=== PATIENT | female | born 1985 | race Caucasian/White ===

== ENCOUNTER 2016-07-20 12:24 | Outpatient (CLI) | payer MEDICAID ==
[~2016-07-20] VITALS: Ht 139.7 cm; Wt 78.0 kg
[~2016-07-20 12:24] MED LIST: PREN1TAB49
[2016-07-20 12:55] VITALS: Ht 139.7 cm; Wt 78.0 kg
[2016-07-20 12:56] VITALS: BP 117/68; PULSE 82; RESP 18
[2016-07-20] MEDS ORDERED: FERR325C PO (12:59)
[2016-07-20] MEDS ORDERED: CALC-516 PO (13:00)
--- NOTE | 2016-07-20 13:31 | RADRPT ---
PROCEDURE: OB ultrasound for biophysical profile CLINICAL INDICATION: Decreased movement. Biophysical profile. . TECHNIQUE: Multiple sonographic images of the pelvis were obtained. Transabdominal view of the gr avid uterus are available for review. The images were reviewed on a PACS workstation. COMPARISON: None FINDINGS: breathing movement = 2/2 tone = 2/2 motion = 2/2 NIR = 2/2 Single intrauterine gestation is identified in cephalic position. heart rate is 152 bpm. Plac enta is fundal without evidence for abruption or previa. NIR measures 10.5 cm, within normal limits . IMPRESSION: 1. Single live intrauterine gestation. 2. Biophysical profile = 8/8. 3. NIR = 10.5 cm. RPTAT: HH .Juan Jose Singh MD, Date Time Electronically viewed and signed by .Juan Jose Singh MD, on 07/20/2016 13:30 .R/
== END 2016-07-20 16:30 | disposition home or self-care (01) ==
LOC: OBT 12:24 → L-D 12:24 → OBT 16:30
PROVIDERS: ATTEND Obstetrics & Gynecology
DX: O36.8130 Decreased fetal movements, third trimester, not applicable or unspecified (principal); O40.3XX0 Polyhydramnios, third trimester, not applicable or unspecified; Z3A.00 Weeks of gestation of pregnancy not specified
CPT/HCPCS: 76818; Z7500; G0463

== ENCOUNTER 2016-07-21 03:13 | Inpatient (IN) | payer MEDICAID ==
[~2016-07-21] VITALS: Ht 144.8 cm; Wt 77.1 kg
[~2016-07-21 03:13] MED LIST changes: +CALC-516 PO; +FERR325C PO
[2016-07-21 03:41] VITALS: Ht 144.8 cm; Wt 77.1 kg
[2016-07-21 03:42] VITALS: BP 128/73; PULSE 90; RESP 18
[2016-07-21] MEDS ORDERED: IBUPROFEN 600 MG TAB PO PRN (04:00)
[2016-07-21] MEDS ORDERED: OXYTOCIN 30 UNITS/LR 500 ML IV SCH (04:00)
[2016-07-21] MEDS ORDERED: MISOPROSTOL 200 MCG TAB PR PRN ×2 (04:00→21:00)
[2016-07-21] MEDS ORDERED: CARBOPROST 250 MCG INJ IM PRN ×2 (04:00→21:00)
[2016-07-21] MEDS ORDERED: LACTATED RINGER'S 1,000 ML IV PRN (04:00)
[2016-07-21] MEDS ORDERED: METHYLERGONOVINE 0.2 MG INJ IM PRN ×2 (04:00→21:00)
[2016-07-21] MEDS ORDERED: BUTORPHANOL 2 MG INJ IV PRN (04:00)
[2016-07-21] MEDS ORDERED: OXYTOCIN 30 UNITS/LR 500 ML IV PRN ×3 (04:00→21:00)
[2016-07-21] MEDS ORDERED: LIDOCAINE 1% (MPF) 30 ML INJ INJ PRN (04:00)
[2016-07-21] MEDS: LACTATED RINGER'S 1,000 ML IV SCH ×2 (04:11→11:41)
--- NOTE | 2016-07-21 04:53 | TRIAGE ---
OB Triage Datetime Report Generated by CPN: 07/21/2016 04:52 Datetime: 07/21/2016 04:23 Labor Evaluation Frequency: 1.5-5 Monitor Mode: External Duration (sec)2399: 60-150 Quality: Mild Pattern: Normal: <= 5 Contractions in 10 Minutes Resting Tone [place]: Relaxed Heart Rate FHR Baseline Rate: 140 Monitor Mode: External US Variability: Moderate 6-25 bpm Accelerations: 15X15 Decelerations: None Category: Category I Datetime: 07/21/2016 04:00 Labor Evaluation Frequency: 2-4 Monitor Mode: External Duration (sec)2399: 70-140 Quality: Mild Pattern: Normal: <= 5 Contractions in 10 Minutes Resting Tone [place]: Relaxed Heart Rate FHR Baseline Rate: 145 Monitor Mode: External US Variability: Moderate 6-25 bpm Accelerations: 15X15 Decelerations: Variable Category: Category II Datetime: 07/21/2016 03:41 Vaginal Exam Dilatation (cms): 2.0 Effacement (%): 50 Station: -2 Exam By: SRINATH Bryan Datetime: 07/21/2016 03:40 Stage of : OB Triage Membrane Status: Ruptured Membranes Ruptured Date/Time: 07/21/2016 02:45 Membranes Rupture Method: Spontaneous Amniotic Fluid Color: Clear Amniotic Fluid Amount: Moderate Amniotic Fluid Odor: None Vaginal Bleeding: None Pool: Positive Nitrazine: Positive Datetime: 07/21/2016 03:34 Stage of : OB Triage Assessment Type: Triage Maternal Assessment Level of Consciousness: Fully Conscious DTR's/Clonus: DTRs 2+; No Clonus Headache: Denies Blurred Vision: No Respiratory Effort: Unlabored; Regular Rhythm; Equal Expansion Breath Sounds, Left: Clear and Equal Breath Sounds, Right: Clear and Equal Nausea/Vomiting: Denies RUQ Epigastric Pain: Denies Lower Extremities Edema: Bilateral Lower Extremities Degree: 1+ Upper Extremities Edema: None Degree: None Facial Edema: None Temperature Route: Oral Fall Risk Assessment History of Falling: (0) No Secondary Diagnosis: (0) No Ambulatory Aid: (0) Bedrest/Nurse Assist IV Therapy: (0) No Gait: (0) Normal/Bedrest/Immobile Mental Status: (0) Oriented to Own Ability Fall Score: 0 Fall Risk Score Definition: No Risk: No action required Pain Assessment Pain Scale: 2 Pain Presence: Intermittent Pain Type: Cramping Pain Location: Abdomen; Back Pain Relief Measures: Comfort Measures Datetime: 07/21/2016 03:32 Stage of : OB Triage Time of Arrival: 07/21/2016 03:08 EGA: 36.6 Arrived By: Ambulatory Arrived From: Home Chief Complaint: SROM @0245 Movement: Decreased Contractions: Irregular Time Contractions Began: 07/21/2016 02:45 Rupture of Membranes: Ruptured Vaginal Bleeding: None Vaginal Discharge: Present Abdominal Trauma: Not Applicable Patient Complaints: Contractions; Cramping; Back Pain Time Provider Notified: 07/21/2016 04:00 Provider Notified: Initial Plan: EFM, Nitrazine, SVE Monitor Mode: External Contraction Comments: [place] applied Heart Rate FHR Baseline Rate: 150 Monitor Mode: External US Comments: EFM applied Datetime: 07/20/2016 15:00 Labor Evaluation Frequency: OCCAS Monitor Mode: External Duration (sec)2399: 50-120 Quality: Mild Pattern: Normal: <= 5 Contractions in 10 Minutes Resting Tone [place]: Relaxed Heart Rate FHR Baseline Rate: 135 Monitor Mode: External US FHR Baseline Changes: No Baseline Change Variability: Moderate 6-25 bpm Accelerations: 15X15 Decelerations: None Category: Category I Datetime: 07/20/2016 14:00 Labor Evaluation Frequency: OCCAS Monitor Mode: External Duration (sec)2399: 50-150 Quality: Mild Pattern: Normal: <= 5 Contractions in 10 Minutes Resting Tone [place]: Relaxed Heart Rate FHR Baseline Rate: 140 Monitor Mode: External US Variability: Moderate 6-25 bpm Accelerations: 15X15 Decelerations: None Category: Category I Datetime: 07/20/2016 12:47 Assessment Type: Triage Maternal Assessment Level of Consciousness: Fully Conscious DTR's/Clonus: DTRs 2+; No Clonus Headache: Denies Blurred Vision: No Respiratory Effort: Unlabored Breath Sounds, Left: Clear and Equal Breath Sounds, Right: Clear and Equal Nausea/Vomiting: Denies RUQ Epigastric Pain: Denies Lower Extremities Edema: None Degree: None Upper Extremities Edema: None Degree: None Facial Edema: None Fall Risk Assessment History of Falling: (0) No Secondary Diagnosis: (0) No Ambulatory Aid: (0) Bedrest/Nurse Assist IV Therapy: (0) No Gait: (0) Normal/Bedrest/Immobile Mental Status: (0) Oriented to Own Ability Fall Score: 0 Fall Risk Score Definition: No Risk: No action required Datetime: 07/20/2016 12:45 Time of Arrival: 07/20/2016 12:14 EGA: 36.5 Arrived By: Ambulatory Arrived From: Dr. Moreno Chief Complaint: No FM in office, with FHR of 160-168, per provider. Pt came with orders Movement: Decreased Contractions: Denies/Absent Rupture of Membranes: Denies Vaginal Bleeding: None Vaginal Discharge: Denies Recent Sexual Intercouse: Denies Abdominal Trauma: Not Applicable Patient Complaints: Other Time Provider Notified: 07/20/2016 16:04 Provider Notified: DR HERNANDEZ Initial Plan: VS, EFM, BPP/NIR Datetime: 07/20/2016 12:42 Stage of : OB Triage Monitor Mode: External Datetime: 07/20/2016 12:41 Monitor Mode: External US Datetime: 07/20/2016 12:37 Stage of : OB Triage Datetime: 07/20/2016 12:26 Stage of : OB Triage
[2016-07-21 04:55] LABS: INR 0.94; PROTIME 12.6 Sec (12.2-14.2)
[2016-07-21 04:56] LABS: PARTIAL THROMBOPLASTIN TIME 27.4 Sec (25.0-35.0)
[2016-07-21 05:14] LABS: BASOPHILS % 0.3 % (0.0-2.0); EOSINOPHILS # 0.1 10^3/ul (0.0-0.5); EOSINOPHILS % 0.9 % (0.0-7.0); HEMATOCRIT 36.1 % (37.0-47.0); HEMOGLOBIN 12.1 g/dl (12.0-16.0); LYMPHOCYTES # 1.5 10^3/ul (0.8-2.9); LYMPHOCYTES % 21.9 % (15.0-51.0); MEAN CORPUSCULAR HEMOGLOBIN 28.3 pg (29.0-33.0); MEAN CORPUSCULAR HGB CONC 33.5 g/dl (32.0-37.0); MEAN CORPUSCULAR VOLUME 84.3 fl (82.0-101.0); MEAN PLATELET VOLUME 11.4 fl (7.4-10.4); MONOCYTE # 0.4 10^3/ul (0.3-0.9); MONOCYTES % 5.5 % (0.0-11.0); NEUTROPHIL # 4.9 10^3/ul (1.6-7.5); NEUTROPHILS % 70.8 % (39.0-77.0); PLATELET COUNT 182 10^3/UL (140-440); RED BLOOD COUNT 4.28 10^6/ul (4.20-5.40); RED CELL DISTRIBUTION WIDTH 13.9 % (11.5-14.5); WHITE BLOOD COUNT 6.9 10^3/ul (4.8-10.8)
--- NOTE | 2016-07-21 06:11 | HP ---
Date/Time of Note Date/Time of Note DATE: 07/21/16 TIME: 06:06 OB - History Hx of Present Free Text/Dictation 31 yo P1@ 36 + wks presents w PPROM No VB, good FM, some ctx Chief Complaint: PPROM Estimated Due Date: Aug 12, 2016 : 2 Para: 1 Care: Good Care Past Family/Social History * Past Medical, Surgical, Family and Obstetric Histories reviewed from chart. Blood Type: B+ Rubella: immune RPR/VDRL: Negative GBS Status: Negative HBsAG: Negative OB Admission Exam Vital Signs Vital Signs Vital Signs Date Time Temp Pulse Resp B/P Pulse Ox O2 Delivery O2 Flow Rate FiO2 07/21/16 03:42 98.2 90 18 128/73 Room Air Physical Exam Abdomen: WNL Cervical Dilatation: 2cm Accelerations: Accelerations Present Decelerations: No Decelerations Varibility: Moderate Contractions on Admission: < 5 Minutes Apart Last 72 hours Lab Results CBC & BMP 07/21/16 04:05 OB Assessment/Plan Other Assessment: 31 yo P1 @ 36 wks w PPROM -GBS neg -in early labor -reassuring status Other plan: Admit to L&D consider pitocin augmentation if labor does not progress anticipate MATTY KNOTT MD Jul 21, 2016 06:11
[2016-07-21] MEDS: OXYTOCIN 30 UNITS/LR 500 ML IV SCH ×3 (07:57→20:55)
--- NOTE | 2016-07-21 18:58 | LDN ---
Date/Time of Note Date/Time of Note DATE: 07/21/16 TIME: 18:58 Delivery Summary pt pushed and delivered viable infant without any complications. no lacerations. ebl 100 Placenta Delivered: Spontaneously Perineum intact?: Yes Anesthesia type: Epidural Sponge & Needle done & correct: Yes All needle counts correct: Yes Any foreign bodies felt in the: No Problems: SHILOH MCNULTY MD Jul 21, 2016 18:58
[2016-07-21 20:40] VITALS: BP 119/64; PULSE 77; RESP 20
[2016-07-21] MEDS: LACTATED RINGER'S 1,000 ML IV* SCH (20:55)
[2016-07-21] MEDS ORDERED: WITCH HAZEL/GLYCERIN PAD PR PRN (21:00)
[2016-07-21] MEDS ORDERED: ACETAMINOPHEN/CODEINE #3 TAB PO PRN ×2 (21:00)
[2016-07-21] MEDS ORDERED: DIPHENHYDRAMINE 25 MG CAP PO PRN (21:00)
[2016-07-21] MEDS ORDERED: LANOLIN 7 GM TUBE TOP PRN (21:00)
[2016-07-21] MEDS ORDERED: ACETAMINOPHEN 325 MG TAB PO PRN (21:00)
[2016-07-21] MEDS: SENNA/DOCUSATE NA (8.6MG/50MG) TAB PO SCH (21:20)
[2016-07-21] MEDS: IBUPROFEN 600 MG TAB PO SCH (23:41)
[2016-07-22] MEDS: OXYTOCIN 30 UNITS/LR 500 ML IV SCH (00:55)
[2016-07-22 04:55] VITALS: BP 110/61; PULSE 71; RESP 20
[2016-07-22] MEDS: LACTATED RINGER'S 1,000 ML IV* SCH (04:55)
[2016-07-22] MEDS: IBUPROFEN 600 MG TAB PO SCH ×4 (05:18→23:58)
[2016-07-22 08:00] VITALS: BP 109/54; PULSE 82; RESP 20
[2016-07-22] MEDS: SENNA/DOCUSATE NA (8.6MG/50MG) TAB PO SCH ×2 (09:38→21:00)
[2016-07-22 11:08] LABS: BASOPHILS % 0.3 % (0.0-2.0); EOSINOPHILS % 0.2 % (0.0-7.0); HEMATOCRIT 35.9 % (37.0-47.0); HEMOGLOBIN 12.1 g/dl (12.0-16.0); LYMPHOCYTES % 15.1 % (15.0-51.0); MEAN CORPUSCULAR HEMOGLOBIN 28.7 pg (29.0-33.0); MEAN CORPUSCULAR HGB CONC 33.7 g/dl (32.0-37.0); MEAN CORPUSCULAR VOLUME 85.3 fl (82.0-101.0); MEAN PLATELET VOLUME 9.1 fl (7.4-10.4); MONOCYTE # 0.8 10^3/ul (0.3-0.9); MONOCYTES % 5.8 % (0.0-11.0); NEUTROPHIL # 10.4 10^3/ul (1.6-7.5); NEUTROPHILS % 78.6 % (39.0-77.0); PLATELET COUNT 193 10^3/UL (140-440); RED BLOOD COUNT 4.21 10^6/ul (4.20-5.40); RED CELL DISTRIBUTION WIDTH 14.1 % (11.5-14.5); UNCORRECTED WBC 13.3 10^3/ul (4.8-10.8); WHITE BLOOD COUNT 13.3 10^3/ul (4.8-10.8)
[2016-07-22 11:14] LABS: CONDITION 1
[2016-07-22 11:44] VITALS: PULSE 77; RESP 18
--- NOTE | 2016-07-22 12:49 | PN ---
Date/Time of Note Date/Time of Note DATE: 07/22/16 TIME: 12:47 OB Subjective Subjective Subjective day 2 Vital sign stable, afebrile, abdomen soft, uterus firm, lochia normal, extremity normal. Laboratory Tests Test 07/22/16 10:48 Basophils # 0.010^3/ul Basophils % 0.3% Blood Morphology Comment Eosinophils # 0.010^3/ul Eosinophils % 0.2% Hematocrit 35.9% Hemoglobin 12.1g/dl Lymphocytes # 2.010^3/ul Lymphocytes % 15.1% Mean Corpuscular Hemoglobin 28.7pg Mean Corpuscular Hemoglobin Concent 33.7g/dl Mean Corpuscular Volume 85.3fl Mean Platelet Volume 9.1fl Monocytes # 0.810^3/ul Monocytes % 5.8% Neutrophils # 10.410^3/ul Neutrophils % 78.6% Nucleated Red Blood Cells # 0.010^3/ul Nucleated Red Blood Cells % 0.0/100WBC Platelet Count 19798^3/UL Red Blood Count 4.2110^6/ul Red Cell Distribution Width 14.1% White Blood Count 13.310^3/ul Current Medications Medications (Trade) Dose Ordered Sig/Miki Route PRN Reason Start Time Stop Time Status Last Admin Dose Admin Lactated Ringer's (Lr) 1,000 ml @ 125 mls/hr Q8H IV 07/21/16 03:49 07/21/16 20:56 DC 07/21/16 11:41 Butorphanol Tartrate (Stadol) 2 mg Q2H PRN IV PAIN 07/21/16 04:00 07/21/16 20:56 DC 07/21/16 16:40 Lidocaine 30 ml 30 ml ONCE PRN INJ EPISIOTOMY/TEARING 07/21/16 04:00 07/21/16 20:56 DC Oxytocin/Lactated Ringer's 500 ml @ 125 mls/hr ONCE -MAY REPEAT X1 IV 07/21/16 04:00 07/21/16 20:56 DC 07/21/16 20:06 Oxytocin/Lactated Ringer's 500 ml @ 125 mls/hr ONCE IV 07/21/16 04:00 07/21/16 20:56 DC Ibuprofen 600 mg 600 mg ONCE PRN PO Mild Pain (Pain Score 1-3) 07/21/16 04:00 07/21/16 20:56 DC Lactated Ringer's 1,000 ml @ 2,000 mls/hr Q30M PRN IV PRE-EPIDURAL BOLUS 07/21/16 04:00 07/21/16 20:56 DC Oxytocin/Lactated Ringer's 500 ml @ 0 mls/hr ONCE PRN IV For Hemorrhage Management 07/21/16 04:00 07/21/16 20:56 DC Methylergonovine Maleate (Methergine) 0.2 mg ONCE PRN IM VAGINAL BLEEDING 07/21/16 04:00 07/21/16 20:57 DC Carboprost Tromethamine (Hemabate) 250 mcg ONCE PRN IM VAGINAL BLEEDING 07/21/16 04:00 07/21/16 20:56 DC Misoprostol 1000 mcg 1,000 mcg ONCE PRN GA VAGINAL BLEEDING 07/21/16 04:00 07/21/16 20:56 DC Oxytocin/Lactated Ringer's 500 ml @ 0 mls/hr Q0M PRN IV CERVICAL RIPENING 07/21/16 06:00 07/21/16 20:56 DC Oxytocin/Lactated Ringer's 500 ml @ 125 mls/hr Q4H IV 07/21/16 20:55 07/22/16 04:54 DC Lactated Ringer's (Lr) 1,000 ml @ 125 mls/hr Q8H IV* 07/21/16 20:55 07/22/16 11:12 DC Ibuprofen (Motrin) 600 mg Q6 PO 07/22/16 00:00 07/22/16 11:44 Acetaminophen/ Codeine Phosphate (Tylenol No.3) 1 tab Q4H PRN PO PAIN LEVEL 1-5 07/21/16 21:00 Acetaminophen/ Codeine Phosphate (Tylenol No.3) 2 tab Q4H PRN PO PAIN LEVEL 6-10 07/21/16 21:00 Diphenhydramine HCl (Benadryl) 25 mg Q6H PRN PO PRURITUS 07/21/16 21:00 Senna/Docusate Sodium (Senokot-S) 1 tab BID PO 07/21/16 21:00 07/22/16 09:38 Witch [place]/ Glycerin (Tucks Pads) 1 pad BEDSIDE MEDICATION PRN GA HEMORRHOID/EPISIOTMY PAIN 07/21/16 21:00 Lanolin (Giq-V-Yvqmay) 1 applic BEDSIDE MEDICATION PRN TOP BEDSIDE FOR RAJAT TO NIPPLES 07/21/16 21:00 Acetaminophen 650 mg 650 mg Q4H PRN PO ELEVATED TEMPERATURE 07/21/16 21:00 Oxytocin/Lactated Ringer's 500 ml @ 0 mls/hr ONCE PRN IV For Hemorrhage Management 07/21/16 21:00 Methylergonovine Maleate (Methergine) 0.2 mg ONCE PRN IM VAGINAL BLEEDING 07/21/16 21:00 Carboprost Tromethamine (Hemabate) 250 mcg ONCE PRN IM VAGINAL BLEEDING 07/21/16 21:00 Misoprostol (Cytotec) 1,000 mcg ONCE PRN GA VAGINAL BLEEDING 07/21/16 21:00 Influenza Virus Vaccine (Fluzone) 0.5 ml ONCE ONCE IM* 07/23/16 09:00 07/23/16 09:01 ALYSSA HERNANDEZ MD Jul 22, 2016 12:49
[2016-07-22] MEDS ORDERED: INFLUENZA VIRUS VACCINE 0.5 ML (DISPENSING) IM* ONE (14:00)
[2016-07-22 15:48] VITALS: BP 102/55; PULSE 80; RESP 18
[2016-07-22 20:15] VITALS: BP 104/60; PULSE 85; RESP 18
[2016-07-23 03:35] VITALS: BP 100/58; PULSE 80; RESP 18
[2016-07-23] MEDS: IBUPROFEN 600 MG TAB PO SCH ×3 (06:00→17:47)
[2016-07-23 08:10] VITALS: BP 100/60; PULSE 77; RESP 17
[2016-07-23] MEDS ORDERED: INFLUENZA VIRUS VACCINE 0.5 ML (DISPENSING) IM* ONE (09:00)
[2016-07-23] MEDS: SENNA/DOCUSATE NA (8.6MG/50MG) TAB PO SCH (09:02)
--- NOTE | 2016-07-23 10:27 | PD.PPDC ---
ANIMAL SITTER Discharge Instruction Condition Patient Condition: Good Diet Diet: Resume Regular Diet Follow-up Follow-up with Physician: 2, Week/Weeks Return to clinic for NUTRITION PARTNER Instructions: Fever greater than 101 Worsening abdominal pain Excessive Vaginal Bleeding More than 2 pads per hour Unable to tolerate diet ALYSSA HERNANDEZ MD Jul 23, 2016 10:27
--- NOTE | 2016-07-23 10:31 | DS ---
Date/Time of Note Date/Time of Note DATE: 07/23/16 TIME: 10:28 Obstetrical Discharge Record Final Diagnosis Final Diagnosis: Term delivered Vaginal Delivery Obstetrical Delivery: Spontaneous Condition on Discharge Physical Assessment Last Vitals: Post normal vaginal delivery day 2 Afebrile, vital sign stable, abdomen soft, uterus firm lochia normal, extremity normal discharged home with follow-up instructions and appointment to the clinic in 2 weeks, Voiding: Yes Bowel Movement: Yes Breast: Soft, non-tender, Filling Fundus: Firm Calf Tenderness: No Patient Condition: Good ALYSSA HERNANDEZ MD Jul 23, 2016 10:31
[2016-07-23 15:33] VITALS: BP 105/55; PULSE 81; RESP 16
--- NOTE | 2016-07-23 17:40 | HP ---
Date/Time of Note Date/Time of Note DATE: 07/23/16 TIME: 17:20 OB - History Hx of Present Free Text/Dictation 29 years old [place] female 5 para 3 SAB 1, history of 3 previous section, admitted to [facility] for repeat for the fourth time at 39 weeks and 1 day, EDC of July 29, 2016, patient has been counseled regarding the complication of the surgery((fourth ) including but not limited to bowel and bladder injury infection wound hematoma and hemorrhage, she would like to proceed with the procedure Past history Medical, infectious and genetic history, negative [employer] history menarche at age 10 history of 3 previous section, one spontaneous Allergies, denies allergies to any known medication Social habits, denies a smoking or drinking Review of system within normal consistent with term Physical examination Temperature 90.8 heart rate 68 respiration 16 blood pressure 99/63 Head ears nose and throat negative Neck, supple otitis media megaly Lungs, clear to P/A Heart, normal sinus rhythm no murmur Abdomen, uterus fundal heights measures 38 cm from symphysis pubis to the height of fundus, heart rate category 1 Pelvic examination, deferred Extremities, no edema no varicosities Impression: Intrauterine at 39 weeks gestation history of 3 previous C -section being prepared to undergo repeat for the fourth time. Patient is aware of the complication of the surgery including bowel and bladder injury wound infection, wound hematoma, and hemorrhage, she is willing to go head with the procedure Estimated Due Date: Jul 29, 2016 Care: Good Care Ultrasounds: Normal mid trimester US Obstetrical Complications: None Medical Complications: None Past Family/Social History * Past Medical, Surgical, Family and Obstetric Histories reviewed from chart. Rubella: immune RPR/VDRL: Negative GBS Status: Negative HBsAG: Negative OB Admission Exam Vital Signs Vital Signs Vital Signs Date Time Temp Pulse Resp B/P Pulse Ox O2 Delivery O2 Flow Rate FiO2 07/23/16 15:33 98.0 81 16 105/55 Room Air Physical Exam Heart: Rhythm Normal Lungs: Clear, Equal Abdomen: WNL Extremities: Normal Reflexes: Normal Cervical Dilatation: None Effacement: 0% Station: Ballotable Membranes: Intact Heart Rate: 120's Accelerations: Accelerations Present Decelerations: No Decelerations Contractions on Admission: None Last 72 hours Lab Results CBC & BMP 07/21/16 04:05 07/22/16 10:48 ALYSSA HERNANDEZ MD Jul 23, 2016 17:38
== END 2016-07-23 18:45 | disposition home or self-care (01) | DRG 775 ==
LOC: OBT 03:13 → L-D 03:14 → OBT 04:12 → L-D 04:13 → PP1 20:53
PROVIDERS: ADMIT Obstetrics & Gynecology; ATTEND Obstetrics & Gynecology
PROC: 10E0XZZ Delivery of Products of Conception, External Approach (ICD-10-PCS; principal; 2016-07-21)
PROC: 3E00X4Z Introduction of Serum, Toxoid and Vaccine into Skin and Mucous Membranes, External Approach (ICD-10-PCS; 2016-07-22)
DX: O60.14X0 Preterm labor third trimester with preterm delivery third trimester, not applicable or unspecified (principal); Z23 Encounter for immunization; Z3A.36 36 weeks gestation of pregnancy; Z37.0 Single live birth
CPT/HCPCS: 36415; 85025; 85610; 85730; 86592; 86900; 86901; 87340; 90686; G0463; J2590; J7120